=== PATIENT | male | born 1980 | race Caucasian/White ===

== ENCOUNTER 2016-06-27 03:00 | Emergency (ER) | payer MEDICAID ==
[~2016-06-27] VITALS: Ht 175.3 cm; Wt 73.0 kg
[2016-06-27 03:47] VITALS: BP 125/81
== END 2016-06-27 03:49 ==
LOC: ED 03:43
DX: F15.10 Other stimulant abuse, uncomplicated (principal)
CPT/HCPCS: 82962; 93005; 99283